=== PATIENT | female | born 2000 | race Caucasian/White ===

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

== ENCOUNTER 2018-02-11 16:17 | Emergency (ER) | payer OTHER ==
--- OUTSIDE RECORDS SUMMARY | 2018-02-11 16:36 | XMS REPORT ---
:2000 External Reference #:[id number] Author Organization [facility] Address [address] [address] Phone [phone] Care Team Providers Name Role Phone Tami Barton, SOFT SUGAR SUPERVISOR Primary Care Physician Unavailable Payers Type Date Identification Numbers Payment Provider Subscriber Commercial Policy Number: [id number] [facility] Columba Wallace PayID: [id number] [address] [place] [address] Problems Date Description Provider Status Onset: 06/29/2017 Generalized anxiety disorder Tami Barton, SOFT SUGAR SUPERVISOR Active Onset: 06/29/2017 Migraine without aura, not Digiovanna, Tami, SOFT SUGAR SUPERVISOR Active refractory Onset: 06/29/2017 von Willebrand disorder DigiovannaYaminiTami, SOFT SUGAR SUPERVISOR Active Family History Date Family Member(s) Problem(s) Comments General Cancer, Breast multiple members on mother's side, not mother or MGM General Heart Disease MGF has pacemaker General ADHD brother Mother Thyroid Disease Mother Hypertension Grandfather Cancer, Bone Grandmother Cancer, Lung Social History Type Date Description Comments Education Currently working on Vocational Degree working on [employer] Marital Status Single 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 Currently Working [employer] ETOH Use Denies alcohol use Smoking Patient has never smoked Daily Caffeine Does Not Consume Caffeine Allergies, Adverse Reactions, Alerts Date Description Reaction Status Severity Comments 06/11/2017 Lactose active 06/11/2017 NKDA inactive Medications Medication Date Status Form Strength Qnty SIG Indications Ordering Provider Imipramine HCL 00/00/0 Active Tablets 25mg 30tabs Take One F41.1 Digiovanna, 000 Tablet By Tami, Mouth At SOFT SUGAR SUPERVISOR Bedtime F33.9 Hydroxychloroquine Active Tablets 200mg 1 po bid Silvia Mahmood DR Buspirone HCL 08/03/2017 - Hx Tablets 5mg 60tabs 1 po F41 Digiovanna, 09/06/2017 daily .1 Tami, for 1 SOFT SUGAR SUPERVISOR week then twice daily Vitamin D 06/30/2017 - Hx Tablets 2000Unit OTC 1 by Digiovanna, 09/03/2017 mouth Tami, twice SOFT SUGAR SUPERVISOR every day Immunizations CPT Code Status Date Vaccine Reaction Lot # 52431 Given 10/03/2013 HPV Vaccine (Gardasil) 3 Dose Schedule nysiis 83462 Given 09/12/2012 HPV Vaccine (Gardasil) 3 Dose Schedule nysiis 95581 Given 09/11/2011 Menactra/Menveo Meningococcal Vaccine nysiis 75331 Given 09/11/2011 HPV Vaccine (Gardasil) 3 Dose Schedule nysiis 00567 Given 07/09/2010 Varicella (Chicken Pox) Immunization nysiis 77012 Given 07/09/2010 Tdap (Adacel) Ages 7 And Above Only nysiis 22119 Given 04/30/2003 IPV / Poliomyelitis Immunization nysiis 47077 Given 04/30/2003 MMR Virus Immunization nysiis 60617 Given 04/30/2003 DTaP Immunization 7 Yrs & Younger nysiis 86633 Given 09/09/2000 Hib ACTHiB Vaccine 4 Dose Schedule nysiis 22179 Given 09/09/2000 DTaP Immunization 7 Yrs & Younger nysiis 08716 Given 09/09/2000 Varicella (Chicken Pox) Immunization nysiis 76560 Given 09/09/2000 Hepatitis B Vac Ped/Adolescent 3 Dose nysiis Schedule 11908 Given 04/07/2000 Hepatitis B Vac Ped/Adolescent 3 Dose nysiis Schedule 69831 Given 02/11/2000 IPV / Poliomyelitis Immunization nysiis 67405 Given 02/11/2000 DTaP Immunization 7 Yrs & Younger nysiis 55587 Given 02/11/2000 Hib ACTHiB Vaccine 4 Dose Schedule nysiis 79147 Given 12/22/1999 IPV / Poliomyelitis Immunization nysiis 51328 Given 12/22/1999 MMR Virus Immunization nysiis 78514 Given 12/22/1999 DTaP Immunization 7 Yrs & Younger nysiis 94379 Given 12/22/1999 Hib ACTHiB Vaccine 4 Dose Schedule nysiis 46104 Given 1998 IPV / Poliomyelitis Immunization nysiis 67508 Given 1998 DTaP Immunization 7 Yrs & Younger nysiis 08155 Given 1998 Hib ACTHiB Vaccine 4 Dose Schedule nysiis 01198 Given 1998 Hepatitis B Vac Ped/Adolescent 3 Dose nysiis Schedule Vital Signs Date Vital Result Comment 01/25/2018 Body Temperature 99.2 F tympanic Weight 196.00 lb Weight Percentile 97th Heart Rate 88 /min BP Systolic 114 mmHg BP Diastolic 68 mmHg Respiratory Rate 16 /min Height 63.5 inches 5'3.50" Height Percentile 38 % BMI (Body Mass Index) 34.2 kg/m2 Body Mass Index Percentile 97 % 11/09/2017 Weight 193.00 lb Weight Percentile 97th Heart Rate 76 /min BP Systolic 118 mmHg BP Diastolic 76 mmHg Respiratory Rate 18 /min Height 63.5 inches 5'3.50" Height Percentile 38 % BMI (Body Mass Index) 33.6 kg/m2 Body Mass Index Percentile 97 % 09/20/2017 Weight 191.00 lb Weight Percentile 97th Heart Rate 96 /min BP Systolic 132 mmHg BP Diastolic 88 mmHg Respiratory Rate 14 /min Height 63.5 inches 5'3.50" Height Percentile 38 % BMI (Body Mass Index) 33.3 kg/m2 Body Mass Index Percentile 97 % 09/03/2017 Weight 193.00 lb Weight Percentile 97th Heart Rate 72 /min BP Systolic 120 mmHg BP Diastolic 78 mmHg Respiratory Rate 18 /min Height 63.5 inches 5'3.50" Height Percentile 38 % BMI (Body Mass Index) 33.6 kg/m2 Body Mass Index Percentile 97 % 08/17/2017 Weight 189.00 lb Weight Percentile 96th Heart Rate 94 /min BP Systolic 120 mmHg BP Diastolic 70 mmHg Respiratory Rate 16 /min 08/03/2017 Weight 192.00 lb Weight Percentile 97th Heart Rate 106 /min BP Systolic 118 mmHg BP Diastolic 68 mmHg Respiratory Rate 17 /min Height 64.5 inches 5'4.50" Height Percentile 54 % BMI (Body Mass Index) 32.4 kg/m2 Body Mass Index Percentile 96 % 07/09/2017 Body Temperature 98.9 F Weight 187.38 lb Weight Percentile 96th Heart Rate 86 /min BP Systolic 142 mmHg BP Diastolic 68 mmHg BP Systolic Recheck 102 mmHg BP Diastolic Recheck 76 mmHg Respiratory Rate 18 /min Height 64.5 inches 5'4.50" Height Percentile 54 % BMI (Body Mass Index) 31.7 kg/m2 Body Mass Index Percentile 96 % 06/29/2017 Body Temperature 97.9 F Weight 185.00 lb Weight Percentile 96th Heart Rate 84 /min BP Systolic 132 mmHg BP Diastolic 68 mmHg BP Systolic Recheck 108 mmHg BP Diastolic Recheck 68 mmHg Respiratory Rate 18 /min Height 64.5 inches 5'4.50" Height Percentile 54 % BMI (Body Mass Index) 31.3 kg/m2 Body Mass Index Percentile 95 % Last Menstrual Period [id number] Results Test Date Test Result H/L Range Note Ua RFX Micro & Culture II 12/10/2017 Urine Color YELLOW Yellow 1 Urine Clarity CLEAR Clear 1 Urine Glucose - Dipstick NEGATIVE mg/dL Negative 1 Urine Bilirubin - Dipstick NEGATIVE Negative 1 Urine Ketone NEGATIVE mg/dL Negative 1 Urine Specific [place] 1.010 1.010-1.030 1 Urine Blood NEGATIVE Negative 1 Urine PH 7.0 6.5-7.5 1 Urine Protein - Dipstick NEGATIVE mg/dL Negative 1 Urine Urobilinogen - Dipstick 0.2 E.U./dL 0.2-1.0 1 Urine Nitrite - Dipstick NEGATIVE Negative 1 Urine Leuk Esterase NEGATIVE Negative 1 Source: URINE, CLEAN CAT <SEE NOTE> 1, 2 Comprehensive Metabolic Panel 12/10/2017 Glucose 85 mg/dL 74-106 1 BUN 7 mg/dL 7-18 1 Creatinine 0.7 mg/dL 0.6-1.3 1 Glom Filtration Rate, Estimate >60 mL/min >60 1 If >60 mL/min >60 1, 3 BUN/Creat 10.0 ratio 1 Sodium 141 mmol/L 136-145 1 Potassium 3.7 mmol/L 3.5-5.1 1 Chloride 107 mmol/L 98-107 1 Carbon Dioxide 26 mmol/L 21-32 1 Anion Gap 8 mEq/L 8-16 1 Calcium 8.9 mg/dL 8.5-10.1 1 Total Protein 7.8 g/dL 6.4-8.2 1 Albumin 3.9 g/dL 3.4-5.0 1 Globulin 3.9 g/dL 1.9-4.3 1 Alb/Glob 1.0 ratio 1 Bilirubin,Total 0.5 mg/dL 0.2-1.0 1 Sgot/Ast 16 U/L 15-37 1 SGPT/Alt 19 U/L 12-78 1 Alkaline Phosphatase 62 U/L 45-117 1 Laboratory test finding 12/10/2017 CK 97 U/L 26-192 1 Troponin-I < 0.015 ng/mL 1, 4 Laboratory test 12/10/2017 HCG,Serum (Qualitative) NEGATIVE (Negative) 1 , 5 finding CBS W/Automated Diff 12/10/2017 White Blood Count 4.9 K/uL 3.1-10.7 1 Red Blood Count 4.47 M/uL 3.90-5.40 1 Hemoglobin 13.7 gm/dL 11.6-15.8 1 Hematocrit 39.2 % 36.0-46.1 1 Mean Cell Volume 87.7 fl 80.9-99.0 1 Mean Corpuscular HGB 30.6 pg 25.9-32.7 1 Mean Corpuscular HGB Conc 34.9 g/dL High 30.8-34.3 1 Platelet Count 247 K/uL 155-360 1 Red Cell Distri Width SD 40.1 fl 3-47 1 Red Cell Distri Width %CV 12.9 % 11.7-14.4 1 Mean Platelet Volume 8.9 fL 8.9-12.4 1 Neut% 51.7 % 28.0-68.0 1 Lymph % 38.9 % 20.0-42.0 1 [place] % 8.6 % 4.3-13.2 1 Eo% 0.2 % 0.0-6.6 1 Bas% 0.6 % 0.0-1.1 1 Neut# 2.51 K/uL 1.8-7.0 1 Lymph # 1.89 K/uL 1.0-4.0 1 [place] # 0.42 K/uL 0.3-0.9 1 Eos # 0.01 K/uL 0.0-0.5 1 Baso # 0.03 K/uL 0.0-0.1 1 Protime 12/10/2017 Protime 13.0 seconds 12.0-14.4 1 Inr 1.0 0.9-1.1 1, 6 Laboratory test finding 12/10/2017 Act Partial Thrombo 32.7 seconds 23.4- 35.0 1, 7 Time CBC + Diff, Plat Count 11/22/2017 WBC Num Bld Auto 4.5 10*3/uL 4.5-13 RBC Num Bld Auto 4.52 10*6/uL 4.1-5.3 Hgb Bld-mCnc 13.7 g/dL 11.5-15.5 Hct VFr Bld Auto 39.2 % 36-45 MCV RBC Auto 86.8 fL 80-96 MCH RBC Qn Auto 30.3 pg 27-33 MCHC RBC Auto-mCnc 34.9 g/dL 32.0-36.0 RDW RBC Auto-Rto 12.9 % 11.5-14.5 Platelet Num Bld Auto 247 10*3/uL 150-400 Differential method Bld Automated Diff Neutrophils/leuk NFr Bld Auto 44 % 28-68 Lymphocytes/leuk NFr Bld Auto 47 % 13-52 Monocytes/leuk NFr Bld Auto 8 % 0-11 Eosinophil/leuk NFr Bld Auto 0 % 0-5 Basophils/leuk NFr Bld Auto 1 % 0-2 Neutrophils Num Bld Auto 1.95 10*3/uL 1.8-7.0 Lymphocytes Num Bld Auto 2.10 10*3/uL 1.2-4.0 Monocytes Num Bld Auto 0.37 10*3/uL 0-0.8 Eosinophil Num Bld Auto 0.01 10*3/uL 0-0.5 Basophils Num Bld Auto 0.03 10*3/uL 0-0.2 nRBC/100 WBC Bld Auto-Rto 0 /100{WBCs} 0-0 Comprehensive Metabolic Galdamez 11/22/2017 Albumin SerPl BCG-mCnc 4.6 g/dL 3.5-5.2 Bilirub SerPl-mCnc 0.6 mg/dL <1.2 Calcium SerPl-mCnc 9.5 mg/dL 8.6-10.0 Chloride SerPl-sCnc 96 mmol/L Low 98-107 Creat SerPl-mCnc 0.75 mg/dL 0.4-1.0 Glucose SerPl-mCnc 76 mg/dL 70-140 Alp SerPl-cCnc 54 U/L 45-87 Potassium SerPl-sCnc 4.3 mmol/L 3.5-5.1 Prot SerPl-mCnc 7.0 g/dL 6.4-8.3 Sodium SerPl-sCnc 133 mmol/L Low 136-145 Ast SerPl-cCnc 16 U/L <32 BUN SerPl-mCnc 14 mg/dL 6-20 Osmolality SerPl Calc 275 mosm/kg 275-300 Creat/Urea nit SerPl 19 Hco3 Ser-sCnc 25 mmol/L 22-29 Alt SerPl-cCnc 14 U/L <33 Anion Gap3 SerPl-sCnc 12 mmol/L 8-15 Albumin/Glob SerPl 1.9 GFR/Bsa pred.non black SerPl MDRD-ArVRat >90 mL/min/1.73m2 >60 GFR/Bsa pred.black SerPl MDRD-ArVRat >90 mL/min/1.73m2 >60 Laboratory test finding 11/22/2017 CRP Highly Sensitive 0.4 mg/L <3.0 8 Rheumatoid Factor Qnt <10 IU/mL <14 9 Sed Rate - Esr 5 mm/hr <20 Latanya 11/22/2017 Latanya Homogen Titr Ser 250 1/dil High 0-49 Latanya Speckled Titr Ser 1250 1/dil High 0-49 Latanya Rim Titr Ser <50 1/dil 0-49 Latanya nucleolar Titr Ser <50 1/dil 0-49 Laboratory test finding 11/08/2017 Magnesium 2.1 mg/dL 1.8-2.4 10 TSH Reflex FT4 and/or FT3 3.05 uIU/mL 0.30-4.20 10 HCG,Serum (Qualitative) NEGATIVE (Negative) 10, 11 Comprehensive Metabolic Panel 11/08/2017 Glucose 72 mg/dL Low 74-106 10 BUN 9 mg/dL 7-18 10 Creatinine 0.6 mg/dL 0.6-1.3 10 Glom Filtration Rate, Estimate >60 mL/min >60 10 If >60 mL/min >60 10, 12 BUN/Creat 15.0 ratio 10 Sodium 141 mmol/L 136-145 10 Potassium 4.1 mmol/L 3.5-5.1 10 Chloride 108 mmol/L High 98-107 10 Carbon Dioxide 30 mmol/L 21-32 10 Anion Gap 3 mEq/L Low 8-16 10 Calcium 9.0 mg/dL 8.5-10.1 10 Total Protein 7.3 g/dL 6.4-8.2 10 Albumin 3.8 g/dL 3.4-5.0 10 Globulin 3.5 g/dL 1.9-4.3 10 Alb/Glob 1.1 ratio 10 Bilirubin,Total 0.4 mg/dL 0.2-1.0 10 Sgot/Ast 15 U/L 15-37 10 SGPT/Alt 21 U/L 12-78 10 Alkaline Phosphatase 57 U/L 45-117 10 Drugs Of Abuse-Urine Screen 7 11/08/2017 Amphetamines (Urine) Negative 10 Barbiturates (Urine) Negative 10 Benzodiazepines (Urine) Negative 10 Cannabinoids (Urine) Negative 10 Cocaine Metabolite (Urine) Negative 10 Methadone (Urine) Negative 10 Opiates (Urine) Negative 10 Urine Cutoffs * 10, 13 Ua RFX Micro & Culture II 11/08/2017 Urine Color YELLOW Yellow 10 Urine Clarity CLEAR Clear 10 Urine Glucose - Dipstick NEGATIVE mg/dL Negative 10 Urine Bilirubin - Dipstick NEGATIVE Negative 10 Urine Ketone NEGATIVE mg/dL Negative 10 Urine Specific [place] <=1.005 Low 1.010-1.030 10 Urine Blood NEGATIVE Negative 10 Urine PH 5.5 Low 6.5-7.5 10 Urine Protein - Dipstick NEGATIVE mg/dL Negative 10 Urine Urobilinogen - Dipstick 0.2 E.U./dL 0.2-1.0 10 Urine Nitrite - Dipstick NEGATIVE Negative 10 Urine Leuk Esterase NEGATIVE Negative 10 Source: URINE, CLEAN CAT <SEE 10, 14 NOTE> CBS W/Automated Diff 11/08/2017 White Blood Count 3.7 K/uL 3.1-10.7 10 Red Blood Count 4.48 M/uL 3.90-5.40 10 Hemoglobin 13.4 gm/dL 11.6-15.8 10 Hematocrit 39.7 % 36.0-46.1 10 Mean Cell Volume 88.6 fl 80.9-99.0 10 Mean Corpuscular HGB 29.9 pg 25.9-32.7 10 Mean Corpuscular HGB Conc 33.8 g/dL 30.8-34.3 10 Platelet Count 245 K/uL 155-360 10 Red Cell Distri Width SD 40.9 fl 3-47 10 Red Cell Distri Width %CV 12.9 % 11.7-14.4 10 Mean Platelet Volume 9.0 fL 8.9-12.4 10 Neut% 43.3 % 28.0-68.0 10 Lymph % 48.1 % High 20.0-42.0 10 [place] % 7.8 % 4.3-13.2 10 Eo% 0.3 % 0.0-6.6 10 Bas% 0.5 % 0.0-1.1 10 Neut# 1.61 K/uL Low 1.8-7.0 10 Lymph # 1.79 K/uL 1.0-4.0 10 [place] # 0.29 K/uL Low 0.3-0.9 10 Eos # 0.01 K/uL 0.0-0.5 10 Baso # 0.02 K/uL 0.0-0.1 10 Vitamin B12 And Folate 11/08/2017 Vitamin B12 1322 pg/mL High 193-986 10 Folic Acid 15.5 ng/mL 3.1-17.5 10 Urine HCG (Qualitative) 09/02/2017 Urine HCG (Qualitative) NEGATIVE Negative 15, 16 Source: URINE, CLEAN CAT <SEE NOTE> 15, 17 Ua RFX Micro & Culture II 09/02/2017 Urine Color YELLOW Yellow 15 Urine Clarity CLEAR Clear 15 Urine Glucose - Dipstick NEGATIVE mg/dL Negative 15 Urine Bilirubin - Dipstick NEGATIVE Negative 15 Urine Ketone NEGATIVE mg/dL Negative 15 Urine Specific [place] <=1.005 Low 1.010-1.030 15 Urine Blood NEGATIVE Negative 15 Urine PH 6.0 Low 6.5-7.5 15 Urine Protein - Dipstick NEGATIVE mg/dL Negative 15 Urine Urobilinogen - Dipstick 0.2 E.U./dL 0.2-1.0 15 Urine Nitrite - Dipstick NEGATIVE Negative 15 Urine Leuk Esterase NEGATIVE Negative 15 Source: URINE, CLEAN CAT <SEE 15, 18 NOTE> Laboratory test finding 06/29/2017 Vit D25oh 23 ng/mL Low 31-100 TSH 1.90 uIU/mL 0.35-4.94 Lipid 06/29/2017 Cholesterol 195 mg/dL 50-199 Triglycerides 48 mg/dL 30-200 HDL 66 mg/dL 35-85 19 Chol/ HDL Ratio 3.0 ratio Low 3.7-5.6 VLDL 10 mg/dL 2-29 LDL (Calc) 120 mg/dL High 20-99 20 Comprehensive Met Panel-FCMG 06/29/2017 Sodium 140 mmol/L 135-146 21 Potassium 4.2 mmol/L 3.5-5.2 Chloride# 103 mmol/L 97-110 22 Carbon Dioxide 30 mmol/L 24-34 Glucose 77 mg/dL 70-105 BUN 9 mg/dL 6-26 Creatinine 0.7 mg/dL 0.5-1.4 Calcium 9.7 mg/dL 8.5-10.2 Total Protein 7.1 g/dL 6.0-8.0 Albumin 4.5 g/dL 3.6-4.9 Globulin 2.6 g/dL 2.0-3.5 A/G Ratio 1.7 Ratio 1.0-2.2 Total Bilirubin 0.6 mg/dL 0.1-1.3 Alkaline Phosphatase 59 U/L 24-140 Alt 12 U/L 3-42 Ast 16 U/L 8-42 Monika Egfr >60 >60 23 Non Monika Egfr >60 >60 24 Anion Gap 7 mmol/L 7-16 25 CBC With Auto Diff 06/29/2017 WBC 5.6 K/uL 4.1-11.0 RBC 4.34 M/uL 4.00-5.40 Hemoglobin 12.9 gm/dL 12.0-16.0 Hematocrit 38.1 % 36.0-47.0 MCV 87.8 fL 80.0-97.0 MCH 29.8 pg 27.0-32.0 MCHC 33.9 g/dL 32.0-36.0 RDW 13.3 % 11.5-14.5 PLT Count 322 K/ul 140-400 Neutrophil 44.2 % 35.0-75.0 Lymphocyte 48.3 % 16.0-52.0 Monocyte 6.7 % 2.0-10.0 Eosinophil 0.0 % 0.0-5.0 Basophil 0.8 % 0.0-4.0 Abs Neutrophils 2.5 K/uL 2.1-8.0 Abs Lymphocytes 2.7 K/uL 0.8-5.5 Abs Monocytes 0.4 K/uL 0.1-1.0 Abs Eosinophils 0.0 K/uL 0.0-0.5 Abs Basophils 0.0 K/uL 0.0-0.3 1 NAUSEA, WEAK, SHAKEY. GETTING CHECKED FOR MS 2 URINE, CLEAN CATCH 3 Note: Persistent reduction for 3 months or more in an eGFR <60 mL/min/1.73 m2 defines CKD. Patients with eGFR values >/=60 mL/min/1.73 m2 may also have CKD if evidence of persistent proteinuria is present. The original MDRD equation for estimated GFR is not valid for patients less than 18 years of age. Additional information may be found at www.kdoqi.org. 4 0.0 - 0.045 ng/mL: Normal 0.046 - 0.5 ng/mL: Suggestive 0.6 - 1.5 ng/mL: Consistent 5 Method: Quidel QuickVue One-Step Immunoassay 6 THERAPEUTIC INR RANGE: 2.0 - 3.0 DVT, Pulmonary embolus, prophylaxis against venous thrombosis or systemic embolization in high risk patients. 2.5 - 3.5 Mechanical heart valves 7 Is patient on anticoagulants? Coumadin 8 (NOTE) CRPHS (mg/L) CVD risk <1.0 low 1.0-3.0 average >3.0 high 9 Confirmed 10 MUSCLE SPASMS, FINGERS TINGLING AND PAINFUL 11 Method: Quidel QuickVue One-Step Immunoassay 12 Note: Persistent reduction for 3 months or more in an eGFR <60 mL/min/1.73 m2 defines CKD. Patients with eGFR values >/=60 mL/min/1.73 m2 may also have CKD if evidence of persistent proteinuria is present. The original MDRD equation for estimated GFR is not valid for patients less than 18 years of age. Additional information may be found at www.kdoqi.org. 13 URINE SPECIMENS ARE SCREENED AT THE LISTED CUTOFFS DRUG CLASS INITIAL TEST LEVEL Amphetamines 1000 ng/mL Barbiturates 200 ng/mL Benzodiazepines 200 ng/mL Cannabinoids 50 ng/mL Cocaine Metabolite 300 ng/mL Methadone 300 ng/mL Opiates 300 ng/mL Any PRESUMPTIVE POSITIVE findings are UNCONFIRMED. Confirmatory testing is suggested if findings are unexpected. Please contact laboratory if confirmatory testing is desired. SPECIMENS ARE HELD FOR 72 HOURS. 14 URINE, CLEAN CATCH 15 LOW BLOOD PRESSURE, LIGHT HEADED 16 FIRST MORNING SPECIMENS GENERALLY CONTAIN THE HIGHEST CONCENTRATION OF HCG AND ARE RECOMMENDED FOR EARLY DETECTION OF . Method: Quidel QuickVue One-Step Immunoassay 17 URINE, CLEAN CATCH 18 URINE, CLEAN CATCH 19 Per NCEP ATP III Guidelines: Results lower than 40 mg/dL are suggestive of increased risk for coronary artery disease. Results > or=to 60 mg/dL are considered a negative risk factor. 20 Per NCEP ATP III Guidelines: Normal Population <130 Patients with medical conditions: CHD/DM Optimal: <100 Borderline high: 130-159 High: 160-189 Very high: >189 21 Updated reference range on new analyzer 22 Updated reference range on new analyzer 23 Concerning GFR Guidelines for Americans: Normal function or mild renal disease, if clinically at risk: >/=60 mL/min Moderately decreased: 30-59 Severely decreased: 15-29 Renal failure: <15 24 Concerning GFR Guidelines: Normal function or mild renal disease, if clinically at risk: >/=60 mL/min Moderately decreased: 30-59 Severely decreased: 15-29 Renal failure: <15 Glomerular Filtration Rate (GFR) is estimated based on the MDRD equation, which assumes a steady state for creatinine as recommended by the National Kidney Disease Education Program in conjunction with the National Institutes of Health and the National Kidney Foundation. Clinical conditions in which it may be necessary to measure GFR by using clearance methods include extremes of age and body size, severe malnutrition or obesity, diseases of skeletal muscle, paraplegia or quadriplegia, vegetarian diet, rapidly changing kidney function, and calculation of the dose of potentially toxic drugs that are excreted by the kidneys. 25 Updated reference range on new analyzer Procedures Date CPT Code Description Status 08/03/2017 64254 X-Ray Spine Cervical, 6 Or More Views Completed 06/29/2017 12146 Screening Hearing Test Completed Encounters Type Date Location Provider CPT E/M Dx Office Visit 11/09/2017 8:30a [facility] [place] [address] M62.838 R20.9 H53.8 F33.9 F41.1 R51 Office Visit 09/20/2017 4:00p [facility] [place] [address] F41.1 F33.9 R51 Office Visit 09/03/2017 4:15p [facility] [place] [address] R21 Office Visit 08/17/2017 2:30p [facility] [place] [address] F41.1 F33.9 Office Visit 08/03/2017 2:45p [facility] [place] [address] R51 M54.2 F41.1 F33.9 Office Visit 07/09/2017 2:30p [facility] [place] [address] J06.9 Office Visit 06/29/2017 2:00p [facility] [place] [address] Z00.00 D68.0 G43.009 F41.1 E55.9 R31.9 Z83.49 E78.00 Z68.31 Plan of Care Future Appointment(s):04/12/2018 11:30 am - Tami Barton NP at [facility]07/01 3:00 pm - Tami Barton NP at [facility]01/25/2018 - Tami Barton NPM62.838 Other muscle spasmComments:Continue to follow with rheumatology and gxrakqiaxR50.1 MyalgiaComments:Continue PlaquenilIbuprofen 600mg every 6 hours with food alternating Tylenol 1000mg every 6 hours.F41.1 Generalized anxiety disorderComments:Will continue Imipramine for now and re- evaluate after M-S symptoms are under controlFollow up:3 months for srkxarnW19.5 Low back painComments:Urine dip normal and reassuringTylenol and ibuprofen as above.
--- OUTSIDE RECORDS SUMMARY | 2018-02-11 16:36 | XMS REPORT ---
:2000 External Reference #:[id number] Author Organization [facility] Address [address], [address] [place] [address] Phone [phone] Care Team Providers Name Role Phone José Luis Barton MD Care Team Information Non Destructive Tester Unavailable José Luis Barton MD Primary Care Physician Unavailable Payers Type Date Identification Numbers Payment Provider Subscriber Commercial Policy Number: [id number] [facility] Columba Wallace PayID: [id number] [address] [place] [address] Problems Date Description Provider Status Onset: 01/21/2018 Abducens nerve disorder Aditya Culver MD Active Onset: 01/21/2018 Visual discomfort Aditya Culver MD Active Family History Date Family Member(s) Problem(s) Comments Mother Alive Mother Heart Failure Mother Wears Glasses Social History Type Date Description Comments Marital Status Single ETOH Use Denies alcohol use Smoking Patient has never smoked Allergies, Adverse Reactions, Alerts Date Description Reaction Status Severity Comments 12/06/2017 NKDA active Medications Medication Date Status Form Strength Qnty SIG Indications Ordering Provider Imipramine HCL / Active Tablets 25mg 1 PO qd Unknown 0000 Hydroxychloroquine / Active Tablets 200mg Take One Unknown Sulfate 0000 Tablet By Mouth Twice A Day Meclizine HCL / Hx Tablets 25mg Take One Unknown 0000 - Tablet 12/06/ By Mouth 2017 Four Times A Day as Needed For Vertigo Vitamin D / Hx Capsules 19051Tuss Take 1 Unknown (Ergocalciferol) 0000 - Capsule 12/06/ By Mouth 2017 Every Week Buspirone HCL / Hx Tablets 5mg Digiovann 0000 - a, 02/12/ Tami 2017 J, MARKETING COMM[employer]ICATION[employer] COORDINATOR Results Description No Information Procedures Date CPT Code Description Status 01/21/2018 24208 Scanning Computerized Ophthalmic Diagnostic Imaging, Completed Posterior 01/21/2018 63774 Visual Field Exam Extended, Unilateral Or Bilateral Completed 01/21/2018 17039 Eye Exam Est Patient Comprehensive Completed 12/06/2017 98858 Eye Exam New Patient Comprehensive Completed Plan of Care Future Appointment(s):02/01/2018 10:45 am - Aditya Culver MD at [id number]/ 08/2018 9:45 am - Aditya Culver MD at [facility]/30/2018 - Aditya Culver MDH53.141 Visual discomfort, right eyeComments:- no sign of retinopathy- no sign of optic neuropathy- no sign of maculopathy- in setting of hydroxychloroquine use, will perform vf 10-2, oct macula in 4-6 weeks for baseline testingFollow up:4-6 weeks dilate ou; vf 10-2, oct macula please sign of ph[place] for [place] [place]; labs and clinic notes fhmwauX49.22 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
--- OUTSIDE RECORDS SUMMARY | 2018-02-11 16:36 | XMS REPORT ---
:2000 External Reference #:[id number] Author Organization [employer] Address [address] [address] Phone [phone] Care Team Providers Name Role Phone Tami Barton FNP Primary Care Physician Unavailable Payers Type Date Identification Numbers Payment Provider Subscriber Commercial Policy Number: [id number] Santosh Wallace Group Number: [id number] [address] PayID: [id number] [place] [address] Problems Date Description Provider Status Onset: 11/30/2017 Visual disturbance Getachew Webster MD Active Onset: 11/30/2017 Neuralgia Getachew Webster MD Active Onset: 11/30/2017 Skin sensation disturbance Getachew Webster MD Active Social History Type Date Description Comments ETOH Use Never used alcohol Smoking Patient has never smoked Allergies, Adverse Reactions, Alerts Date Description Reaction Status Severity Comments 11/30/2017 NKDA active Medications Medication Date Status Form Strength Qnty SIG Indications Ordering Provider Imipramine HCL / Active Tablets 25mg 1 @hs [employer]anna 0000 , Tami, [employer] Hydroxychloroquine / Active Tablets 200mg Take One Unknown Sulfate 0000 Tablet By Mouth Twice A Day Vital Signs Date Vital Result Comment 02/04/2018 Height 64 inches 5'4" Weight 193.50 lb Heart Rate 68 /min BP Systolic 104 mmHg BP Diastolic 86 mmHg BMI (Body Mass Index) 33.2 kg/m2 Height Percentile 45 % Weight Percentile 97th 11/30/2017 Height 64 inches 5'4" Weight 191.38 lb Heart Rate 78 /min BP Systolic Sitting 120 mmHg BP Diastolic Sitting 80 mmHg BMI (Body Mass Index) 32.8 kg/m2 Height Percentile 46 % Weight Percentile 97th Results Test Date Test Result H/L Range Note Laboratory test finding 11/30/2017 Vitamin D Total 25(Oh) 21.3 ng/mL 20- 50 Vitamin B12 693 pg/mL 180-914 1 TSH (Thyroid Stim Horm) 1.91 mcIU/mL 0.34-5.60 Nmo Igg Negative Negative 2 Lyme Disease Serology Negative Negative 3 Folic Acid (Folate) 16.24 ng/mL >3.99 Erythrocyte Sed Rate 11 mm/Hr 0-14 Anti Nuclear Antibody 0.9 U 4 Cardiolipin Igg/Igm 11/30/2017 Phospholipid Ab IgM, S < 9.4 MPL 5 Phospholipid Ab IgG < 9.4 GPL 6 Comp Metabolic Panel 11/30/2017 Sodium 137 mmol/L 133-145 Potassium 4.0 mmol/L 3.5-5.0 Chloride 103 mmol/L 101-111 Co2 Carbon Dioxide 29 mmol/L 22-32 Anion Gap 5 mmol/L 2-11 Glucose 76 mg/dL 70-100 Blood Urea Nitrogen 8 mg/dL 6-24 Creatinine 0.73 mg/dL 0.51-0.95 BUN/Creatinine Ratio 11.0 8-20 Calcium 9.4 mg/dL 8.6-10.3 Total Protein 7.0 g/dL 6.4-8.9 Albumin 4.3 g/dL 3.2-5.2 Globulin 2.7 g/dL 2-4 Albumin/Globulin Ratio 1.6 1-3 Total Bilirubin 0.70 mg/dL 0.2-1.0 Alkaline Phosphatase 45 U/L 34-104 Alt 12 U/L 7-52 Ast 13 U/L 13-39 Egfr Non- 102.7 >60 Egfr 132.1 >60 7 1 Normal Range 180 to 914 Indeterminate Range 145 to 180 Deficient Range <145 2 Recommend repeat testing in 6 months if clinical suspicion is high. Negative result can occur in the setting of immunosuppression. ADDITIONAL INFORMATION This test was developed and its performance characteristics determined by [facility] in a manner consistent with CLIA requirements. This test has not been cleared or approved by the U.S. Food and Drug Administration. Test Performed by: [facility] - [address] [address] 3 Serologic response to B. burgdorferi infection is not detected, but cannot rule out early infection during which low or undetectable antibody levels to B. burgdorferi may be present. If clinically indicated, a new serum specimen should be submitted in 7-14 days. Test Performed by: [facility] - [facility] [address] [place] [address] 4 REFERENCE VALUE <=1.0 (Negative) Test Performed by: [facility] - [facility] [address] [place] [address] 5 REFERENCE VALUE <15.0 (Negative) 6 REFERENCE VALUE <15.0 (Negative) Test Performed by: [facility] - [address] [address] 7 Because ethnic data is not always readily available, this report includes an eGFR for both -Americans and non- Americans. The National Kidney Disease Education Program (NKDEP) does not endorse the use of the MDRD equation for patients that are not between the ages of 18 and 70, are , have extremes of body size, muscle mass, or nutritional status, or are non- or non-. According to the National Kidney Foundation, irrespective of diagnosis, the stage of the disease is based on the level of kidney function: Stage Description GFR(mL/min/1.73 m(2)) 1 Kidney damage with normal or decreased GFR 90 2 Kidney damage with mild decrease in GFR 60-89 3 Moderate decrease in GFR 30-59 4 Severe decrease in GFR 15-29 5 Kidney failure <15 (or dialysis) Procedures Description No Information Encounters Type Date Location Provider CPT E/M Dx Office Visit 11/30/2017 [facility] [address] R20.0 10:15a R20.2 M79.2 H53.8 Plan of Care Future Appointment(s):08/09/2018 9:30 am - Getachew Webster MD at [id number]/04/2018 - Getachew Webster, MDR20.0 Anesthesia of skinR20.2 Paresthesia of skinH53.8 Other visual disturbancesComments:Her joint symtoms and rash do go along with connective tissue disease and she is being treated adn no specific abnormalities found on neurologic testing - will have her complete the maxine now. Will follow clinically and she will call if gets numbness, weakness or further change in vision.Will take vit d 2000 units a day since level on low sideFollow up:6 MONTHS
[2018-02-11 16:39] VITALS: BP 137/78
--- NOTE | 2018-02-11 17:22 | UC ---
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 central scratch part is itchy. no fevers or chills. -NKDA -LMP 3 days ago. denies being sexually active and denies being . - History of Current Complaint Chief Complaint: UCSkin Time Seen by Provider: 02/11/18 17:08 Stated Complaint: SKIN COMPLAINT Hx Last Menstrual Period: 02/08/18 Pain Intensity: 3 - Allergy/Home Medications Allergies/Adverse Reactions: Allergies Allergy/AdvReac Type Severity Reaction Status Date / Time No Known Allergies Allergy Verified 02/11/18 16:40 Home Medications: Home Medications Hydroxychloroquine TAB* [Plaquenil TAB*] 200 mg PO DAILY 02/11/18 [History Confirmed 02/11/18] Review of Systems Constitutional: Negative Skin: Rash - it felt warm yesterday and today and wanted to makes ure it wasnt more infected. Eyes: Negative ENT: Negative Respiratory: Negative Cardiovascular: Negative Gastrointestinal: Negative Genitourinary: Negative Motor: Negative Neurovascular: Negative Musculoskeletal: Negative Neurological: Negative Psychological: Negative Is Patient Immunocompromised?: No All Other Systems Reviewed And Are Negative: Yes PMH/Surg Hx/FS Hx/Imm Hx Previously Healthy: Yes - Surgical History Surgical History: None Surgery Procedure, Year, and Place: DENIES - Family History Known Family History: Positive: Cardiac Disease - father with CHF as older adult Negative: Hypertension, Diabetes - Social History Alcohol Use: None Substance Use Type: None Smoking Status (MU): Never Smoked Tobacco Have You Smoked in the Last Year: No Physical Exam Triage Information Reviewed: Yes Appearance: Well-Appearing, No Pain Distress, Well-Nourished Vital Signs: Initial Vital Signs Temp 98.5 F 02/11/18 16:34 Pulse 107 02/11/18 16:34 Resp 17 02/11/18 16:34 BP 137/78 02/11/18 16:34 Pulse Ox 98 02/11/18 16:34 Vital Signs Reviewed: Yes Eye Exam: Normal ENT Exam: Normal ENT: Positive: Pharynx normal Neck exam: Normal Respiratory Exam: Normal Respiratory: Positive: Lungs clear, Normal breath sounds, No respiratory distress, No accessory muscle use Cardiovascular Exam: Normal Cardiovascular: Positive: RRR, No Murmur, Pulses Normal, Brisk Capillary Refill - apical HR 90 Musculoskeletal Exam: Normal Neurological Exam: Normal Psychological Exam: Normal Skin: Positive: Other - left forearm with 2 scratches oblong down forearm w/ yellow crusted scab down. there is 1-2 inches of blanching erythema surrounding. no d/c. warm to touch. Course/Dx - Course Course Of Treatment: -explained impetigo and nature of it. js it with selvin websterck progression of surrounding cellulitis. f/u here if sx worsen but should improve daily. -bactrim to cover MRSA & bactroban topically. - Diagnoses Provider Diagnoses: Impetigo Discharge - Sign-Out/Discharge Documenting (check all that apply): Discharge - Discharge Plan Condition: Stable Disposition: HOME Prescriptions: Mupirocin 2% OINT* [Bactroban 2 % Oint*] 1 applic TOPICAL BID 10 Days #1 tube Sulfamethox/Trimethoprim DS* [Bactrim DS 800/160 TAB*] 1 tab PO BID 10 Days #20 tab Patient Education Materials: Impetigo (ED) Referrals: Tami Barotn [Primary Care Provider] - 5 Days Additional Instructions: -Make sure to take a probiotic daily while on antibiotics to help prevent a potential complication of antibiotic use called c diff. Some well known brands that can be found OTC are florastor, align and [employer]. Make sure to complete the entire prescription unless advised otherwise by your health care provider. - Billing Disposition and Condition Condition: STABLE Disposition: HOME
== END 2018-02-11 17:39 | disposition home or self-care (01) ==
LOC: UCCORT 16:17
DX: L01.00 Impetigo, unspecified (principal)
CPT/HCPCS: 99212; G0463

== ENCOUNTER 2018-04-23 15:18 | Emergency (ER) | payer OTHER ==
[2018-04-23] MEDS ORDERED: NS 0.9% 1000 ML* 2,000 ML IV ONE (15:34)
[2018-04-23] MEDS ORDERED: Ondansetron ODT TAB* 4 MG PO ONE (15:34)
[2018-04-23 16:21] LABS: ABS Basophils 0 10^3/ul (0-0.2); ABS Eosinophils 0.1 10^3/ul (0-0.6); ABS Lymphocytes 2.3 10^3/ul (1.0-4.8); ABS Monocytes 0.5 10^3/ul (0-0.8); ABS Neutrophils 1.7 10^3/ul (1.5-7.7); ABS Nucleated RBC 0 10^3/ul; Eosinophil % 1.5 % (0-6); Hematocrit 36 % (35-47); Mean Corpuscular HGB Conc 34 g/dl (31-36); Mean Corpuscular Hemoglobin 30 pg (27-31); Mean Corpuscular Volume 90 fL (80-97); Mean Platelet Volume 6.9 um3 (7.4-10.4); Nucleated Red Blood Cells % 0; Platelet Count 243 10^3/ul (150-450); Red Blood Count 3.96 10^6/ul (4.00-5.40); Red Cell Distribution Width 14 % (10.5-15); White Blood Count 4.5 10^3/ul (3.5-10.8)
[2018-04-23 16:30] LABS: INR 0.9 (0.77-1.02)
[2018-04-23 16:40] LABS: EGFR Non-African American 113.4 (>60)
[2018-04-23 17:10] LABS: Urine Appearance Clear; Urine Blood Negative (Negative); Urine Color Yellow; Urine Ketones Negative (Negative); Urine Protein Negative (Negative); Urine Specific Gravity 1.008 (1.010-1.030); Urine Urobilinogen Negative (Negative)
--- NOTE | 2018-04-23 19:02 | ED ---
Josue Abdi Tariq, scribed for Cabrera Forbes MD on 04/23/18 at 1542 . Complex/Multi-Sys Presentation - HPI Summary HPI Summary: A 17 y/o female presents to ED c/o N/V for the past day. Additionally c/o lightheadedness, ear pain and throat dryness. According to the pt, she exhibited N/V since yesterday morning which gets worse with movement of her head. She noted that she tried drinking a lot of water today to stay hydrated, however she has not been able to keep anything down. She has been vomiting for the past couple hours. Pt noted that she feels hot, shaky and has had "heart palpations". Pt denies abdominal pain, urinary issues, diarrhea/constipation and back pain, however she has a headache, lightheadedness and feels dehydrated. No current medications and no known allergies. Last menstrual period was last week. No major surgeries. - History Of Current Complaint Chief Complaint: EDNauseaVomitDiarrh Time Seen by Provider: 04/23/18 15:26 Hx Obtained From: Patient Onset/Duration: Sudden Onset, Lasting Days - 1 day, Still Present - Slight Aggravating Factor(s): Movement of head Associated Signs And Symptoms: Positive: Headache, Palpitations, Nausea, Vomiting. Negative: Diarrhea, Back Pain - Allergies/Home Medications Allergies/Adverse Reactions: Allergies Allergy/AdvReac Type Severity Reaction Status Date / Time No Known Allergies Allergy Verified 04/23/18 15:39 PMH/Surg Hx/FS Hx/Imm Hx Endocrine/Hematology History: Denies: Hx Diabetes Cardiovascular History: Denies: Hx Hypertension, Hx Pacemaker/ICD History: Denies: Hx Renal Disease Sensory History: Denies: Hx Hearing Aid Psychiatric History: Reports: Hx Panic Disorder - ANXIETY - Surgical History Surgery Procedure, Year, and Place: DENIES Infectious Disease History: No Infectious Disease History: Denies: Traveled Outside the [place] in Last 30 Days - Family History Known Family History: Positive: Cardiac Disease - father with CHF as older adult Negative: Hypertension, Diabetes - Social History Alcohol Use: None Substance Use Type: Reports: None Smoking Status (MU): Never Smoked Tobacco Have You Smoked in the Last Year: No Review of Systems Negative: Fever Positive: Sore Throat - Dryness, Ear Ache Positive: Palpitations Positive: Vomiting, Nausea. Negative: Abdominal Pain, Diarrhea Negative: no symptoms reported Positive: Other - NEGATIVE: back pain Neurological: Other - POSITIVE: lightheaded All Other Systems Reviewed And Are Negative: Yes Physical Exam - Summary Physical Exam Summary: General:well-appearing, no pain distress Skin:warm, color reflects adequate perfusion, dry Head:normal Eyes:EOMI, CHEO ENT:Oral mucosa dry Neck:supple, nontender Respiratory:CTA, breath sounds present Cardiovascular:RRR Abdomen:soft, nontender Bowel:present Musculoskeletal:normal, strength/ROM intact Neurological:sensory/motor intact, A&O x3 Psychological:affect/mood appropriate Triage Information Reviewed: Yes Vital Signs On Initial Exam: Initial Vitals Temp Pulse Resp BP Pulse Ox 98.3 F 88 16 123/66 99 04/23/18 15:21 04/23/18 15:21 04/23/18 15:21 04/23/18 15:21 04/23/18 15:21 Vital Signs Reviewed: Yes Diagnostics - Vital Signs Vital Signs Temp Pulse Resp BP Pulse Ox 04/23/18 15:37 77 17 123/76 100 04/23/18 15:36 12 04/23/18 15:21 98.3 F 88 16 123/66 99 - Laboratory Lab Results: Lab Results 04/23/18 04/23/18 04/23/18 Range/Units 16:09 16:09 16:09 WBC 4.5 (3.5-10.8) 10^3/ul RBC 3.96 L (4.00-5.40) 10^6/ul Hgb 12.0 (12.0-16.0) g/dl Hct 36 (35-47) % MCV 90 (80-97) fL MCH 30 (27-31) pg MCHC 34 (31-36) g/dl RDW 14 (10.5-15) % Plt Count 243 (150-450) 10^3/ul MPV 6.9 L (7.4-10.4) um3 Neut % (Auto) 37.4 L (38-83) % Lymph % (Auto) 50.0 H (25-47) % [place] % (Auto) 10.4 H (0-7) % Eos % (Auto) 1.5 (0-6) % Baso % (Auto) 0.7 (0-2) % Absolute Neuts (auto) 1.7 (1.5-7.7) 10^3/ul Absolute Lymphs (auto) 2.3 (1.0-4.8) 10^3/ul Absolute Monos (auto) 0.5 (0-0.8) 10^3/ul Absolute Eos (auto) 0.1 (0-0.6) 10^3/ul Absolute Basos (auto) 0 (0-0.2) 10^3/ul Absolute Nucleated RBC 0 10^3/ul Nucleated RBC % 0 INR (Anticoag Therapy) 0.90 (0.77-1.02) APTT 34.6 (26.0-36.3) seconds Sodium 138 (135-145) mmol/L Potassium 3.9 (3.5-5.0) mmol/L Chloride 103 (101-111) mmol/L Carbon Dioxide 31 (22-32) mmol/L Anion Gap 4 (2-11) mmol/L BUN 9 (6-24) mg/dL Creatinine 0.67 (0.51-0.95) mg/dL Est GFR ( Amer) 137.2 (>60) Est GFR (Non-Af Amer) 113.4 (>60) BUN/Creatinine Ratio 13.4 (8-20) Glucose 87 (70-100) mg/dL Calcium 9.0 (8.6-10.3) mg/dL Magnesium 1.8 L (1.9-2.7) mg/dL Total Bilirubin 0.40 (0.2-1.0) mg/dL AST 15 (13-39) U/L ALT 15 (7-52) U/L Alkaline Phosphatase 40 (34-104) U/L Troponin I 0.00 (<0.04) ng/mL C-Reactive Protein < 1.00 (<8.01) mg/L Total Protein 6.5 (6.4-8.9) g/dL Albumin 4.0 (3.2-5.2) g/dL Globulin 2.5 (2-4) g/dL Albumin/Globulin Ratio 1.6 (1-3) Lipase 12 (11.0-82.0) U/L TSH 3.91 (0.34-5.60) mcIU/mL Beta HCG, Quant < 0.60 mIU/mL Urine Color Urine Appearance Urine pH (5-9) Ur Specific [place] (1.010-1.030) Urine Protein (Negative) Urine Ketones (Negative) Urine Blood (Negative) Urine Nitrate (Negative) Urine Bilirubin (Negative) Urine Urobilinogen (Negative) Ur Leukocyte Esterase (Negative) Urine Glucose (Negative) Monoscreen Negative (Negative) 04/23/18 Range/Units 17:00 WBC (3.5-10.8) 10^3/ul RBC (4.00-5.40) 10^6/ul Hgb (12.0-16.0) g/dl Hct (35-47) % MCV (80-97) fL MCH (27-31) pg MCHC (31-36) g/dl RDW (10.5-15) % Plt Count (150-450) 10^3/ul MPV (7.4-10.4) um3 Neut % (Auto) (38-83) % Lymph % (Auto) (25-47) % [place] % (Auto) (0-7) % Eos % (Auto) (0-6) % Baso % (Auto) (0-2) % Absolute Neuts (auto) (1.5-7.7) 10^3/ul Absolute Lymphs (auto) (1.0-4.8) 10^3/ul Absolute Monos (auto) (0-0.8) 10^3/ul Absolute Eos (auto) (0-0.6) 10^3/ul Absolute Basos (auto) (0-0.2) 10^3/ul Absolute Nucleated RBC 10^3/ul Nucleated RBC % INR (Anticoag Therapy) (0.77-1.02) APTT (26.0-36.3) seconds Sodium (135-145) mmol/L Potassium (3.5-5.0) mmol/L Chloride (101-111) mmol/L Carbon Dioxide (22-32) mmol/L Anion Gap (2-11) mmol/L BUN (6-24) mg/dL Creatinine (0.51-0.95) mg/dL Est GFR ( Amer) (>60) Est GFR (Non-Af Amer) (>60) BUN/Creatinine Ratio (8-20) Glucose (70-100) mg/dL Calcium (8.6-10.3) mg/dL Magnesium (1.9-2.7) mg/dL Total Bilirubin (0.2-1.0) mg/dL AST (13-39) U/L ALT (7-52) U/L Alkaline Phosphatase (34-104) U/L Troponin I (<0.04) ng/mL C-Reactive Protein (<8.01) mg/L Total Protein (6.4-8.9) g/dL Albumin (3.2-5.2) g/dL Globulin (2-4) g/dL Albumin/Globulin Ratio (1-3) Lipase (11.0-82.0) U/L TSH (0.34-5.60) mcIU/mL Beta HCG, Quant mIU/mL Urine Color Yellow Urine Appearance Clear Urine pH 6.0 (5-9) Ur Specific [place] 1.008 L (1.010-1.030) Urine Protein Negative (Negative) Urine Ketones Negative (Negative) Urine Blood Negative (Negative) Urine Nitrate Negative (Negative) Urine Bilirubin Negative (Negative) Urine Urobilinogen Negative (Negative) Ur Leukocyte Esterase Negative (Negative) Urine Glucose Negative (Negative) Monoscreen (Negative) Result Diagrams: 04/23/18 16:09 04/23/18 16:09 Lab Statement: Any lab studies that have been ordered have been reviewed, and results considered in the medical decision making process. - EKG 1539 Cardiac Rate: NL - 75 BPM EKG Rhythm: Sinus Rhythm ST Segment: Normal Ectopy: None Re-Evaluation - Re-Evaluation First Eval Re-Evaluation Time: 18:23 Change: Improved Comment: Not nauseous anymore. Feeling better. Complex Multi-Symp Course/Dx Course Of Treatment: NAUSEA IMPROVED IN THE ED. DISCUSSED RESULTS WITH THE PATIENT. SHE HAS FOLLOW UP SCHEDULED WITH HER PMD THIS WEEK; RETURN TO ED IF WORSE. - Diagnoses Provider Diagnoses: Nausea & vomiting, Dehydration, Palpitations Discharge - Sign-Out/Discharge Documenting (check all that apply): Discharge/Admit/Transfer - Discharge Plan Condition: Stable Disposition: HOME Prescriptions: Ondansetron ODT TAB* [Zofran 4 MG Odt TAB*] 4 mg PO Q6H PRN #10 tab.odt PRN Reason: Nausea Patient Education Materials: Dehydration (ED), Acute Nausea and Vomiting (ED), Heart Palpitations (ED) Referrals: Tami Barton [Nurse Practitioner] - Additional Instructions: FOLLOW UP WITH YOUR DOCTOR. GET RECHECKED FOR ANY WORSENING OF YOUR CONDITION OR QUESTIONS OR CONCERNS. - Billing Disposition and Condition Condition: STABLE Disposition: Home The documentation as recorded by the Josue munguia Tariq accurately reflects the service I personally performed and the decisions made by me, Cabrera Forbes MD.
[2018-04-23 19:26] VITALS: BP 102/63
== END 2018-04-23 19:31 | disposition home or self-care (01) ==
LOC: ED 15:18
DX: E86.0 Dehydration (principal); R11.2 Nausea with vomiting, unspecified; R00.2 Palpitations; Z82.49 Family history of ischemic heart disease and other diseases of the circulatory system
CPT/HCPCS: 36415; 80053; 81003; 83690; 83735; 84443; 84484; 84702; 85025; 85610; 85730; 86140; 86308; 93005; 96360; 99283; A9270-GY

== ENCOUNTER 2018-07-20 18:17 | Emergency (ER) | payer OTHER ==
[2018-07-20 19:01] VITALS: BP 118/77
--- NOTE | 2018-07-20 20:08 | UC ---
Back Pain HPI - HPI Summary HPI Summary: 17 year old female here with a complaint of low back pain. 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 Pain is worse with range of motion. No weakness or numbness. Patient has not tried any ibuprofen or any pain medications. No difficulty controlling urine or bowel. - History of Current Complaint Chief Complaint: UCBackPain Stated Complaint: BACK PAIN W/C Time Seen by Provider: 07/20/18 19:03 Hx Last Menstrual Period: 07/14/18 Pain Intensity: 10 - Allergies/Home Medications Allergies/Adverse Reactions: Allergies Allergy/AdvReac Type Severity Reaction Status Date / Time No Known Allergies Allergy Verified 07/20/18 18:53 PMH/Surg Hx/FS Hx/Imm Hx - Additional Past Medical History Additional PMH: FIBROMYALGIA - Surgical History Surgical History: None Surgery Procedure, Year, and Place: DENIES - Family History Known Family History: Positive: Cardiac Disease - father with CHF as older adult Negative: Hypertension, Diabetes - Social History Alcohol Use: None Substance Use Type: None Smoking Status (MU): Never Smoked Tobacco Have You Smoked in the Last Year: No Household Exposure Type: Cigarettes Review of Systems Constitutional: Negative Skin: Negative Eyes: Negative ENT: Negative Respiratory: Negative Cardiovascular: Negative Gastrointestinal: Negative Motor: Negative Neurovascular: Negative Musculoskeletal: Other: - See history present illness Neurological: Negative Is Patient Immunocompromised?: No All Other Systems Reviewed And Are Negative: Yes Physical Exam Triage Information Reviewed: Yes Appearance: Well-Appearing, Well-Nourished, Pain Distress - Mild pain distress with movement of the back Vital Signs: Initial Vital Signs Temp 98.8 F 07/20/18 18:54 Pulse 75 07/20/18 18:54 Resp 18 07/20/18 18:54 BP 118/77 07/20/18 18:54 Pulse Ox 100 07/20/18 18:54 Vital Signs Reviewed: Yes Eye Exam: Normal Eyes: Positive: Conjunctiva Clear Neck exam: Normal Neck: Positive: Supple Respiratory: Positive: No respiratory distress Musculoskeletal: Positive: Other: - Patient is tender in the lumbar spine primarily to the right side of the lumbar spine and also the midline from L1 down to L5. No tenderness into the buttocks over the sciatic distribution. Lower extremity strength 5 out of 5 in the low back pain is worse with right hip flexion. Patellar reflexes normal bilaterally. No sensation deficits. Neurological Exam: Normal Neurological: Positive: Alert Psychological Exam: Normal Psychological: Positive: Age Appropriate Behavior Skin Exam: Normal Back Pain Course/Dx - Course Course Of Treatment: I discussed the x-rays with the patient. I do not see any fractures or any acute disease process. The radiologist reading is pending. The plan is ibuprofen with Flexeril when necessary. Follow-up with primary care doctor reevaluation sooner if condition worsens. - Differential Dx/Diagnosis Provider Diagnoses: Low back pain Discharge - Sign-Out/Discharge Documenting (check all that apply): Patient Departure All imaging exams completed and their final reports reviewed: No - Discharge Plan Condition: Stable Disposition: HOME Prescriptions: Cyclobenzaprine TAB* [Flexeril 10 MG TAB*] 10 mg PO TID PRN #15 tab MDD 3 PRN Reason: Pain Ibuprofen TAB* [Motrin TAB* 600 MG] 600 mg PO Q6H PRN #30 tab PRN Reason: Pain Patient Education Materials: Low Back Strain (ED), Lower Back Exercises (ED) Referrals: [facility] [place] PH[facility]ICIAN REFERRAL [Outside] Additional Instructions: FOLLOW UP WITH YOUR DOCTOR IF NOT COMPLETELY IMPROVED. GET RECHECKED FOR ANY WORSENING OF YOUR CONDITION; PAIN, WEAKNESS, NUMBNESS, DIFFICULTY CONTROLLING BOWEL OR BLADDER OR QUESTIONS OR CONCERNS. - Billing Disposition and Condition Condition: STABLE Disposition: Home
--- NOTE | 2018-07-21 07:03 | RAD ---
INDICATION: Low back pain. COMPARISON: There are no relevant prior studies available for comparison. TECHNIQUE: 5 views of the lumbar spine were obtained including lateral, oblique, AP and a coned-down lateral view of the lumbar sacral junction. FINDINGS: The vertebra are in normal alignment. No fracture is seen. Disc spaces appear maintained. IMPRESSION: NEGATIVE EXAM. R0
--- NOTE | 2018-07-21 20:51 | UC ---
- Progress Note Progress Note: Patient Name: KORI VAZQUEZ Medical Record#: [id number] Ordering Physician: Cabrera Forbes MD Acct.#: [id number] : 2000 Age: 17 Sex: F Location: [facility] Exam Date: 07/20/181910 ADM Status: [facility] ER Order Information: SP LUMBARSACRAL 4+ VWS Accession Number: [id number] CPT: 39696 INDICATION: Low back pain. COMPARISON: There are no relevant prior studies available for comparison. TECHNIQUE: 5 views of the lumbar spine were obtained including lateral, oblique , AP and a coned-down lateral view of the lumbar sacral junction. FINDINGS: The vertebra are in normal alignment. No fracture is seen. Disc spaces appear maintained. IMPRESSION: NEGATIVE EXAM. R0 <Electronically signed by José Luis Joseph MD in OV> 07/21/18 07 Dictated By: José Luis Joseph MD Dictated Date/Time: 07/21/18 07 Transcribed Date/Time: 07/21/18 0658 Copy to: CC:No Primary Care Phys,NOPCP ; Cabrera Forbes MD Imaging - [facility] [address] [place] [address] ph ([phone]) ph ([phone]) ph ([phone]) This report is only to be considered final once signed by the Provider(s) as displayed in the "<Electronically Signed by >" field (s). Absence of a signature indicates the report is in a draft status and still needs to be finalized. In the event this document was created by someone other than the signing Provider, the individual initiating the document will be listed in the "Entered by:" or "Dictated by:" hodge. 1 of 1 Discharge - Sign-Out/Discharge Documenting (check all that apply): Post-Discharge Follow Up All imaging exams completed and their final reports reviewed: Yes - Discharge Plan Condition: Stable Disposition: HOME Prescriptions: Cyclobenzaprine TAB* [Flexeril 10 MG TAB*] 10 mg PO TID PRN #15 tab MDD 3 PRN Reason: Pain Ibuprofen TAB* [Motrin TAB* 600 MG] 600 mg PO Q6H PRN #30 tab PRN Reason: Pain Patient Education Materials: Low Back Strain (ED), Lower Back Exercises (ED) Referrals: [facility] [Outside] Additional Instructions: FOLLOW UP WITH YOUR DOCTOR IF NOT COMPLETELY IMPROVED. GET RECHECKED FOR ANY WORSENING OF YOUR CONDITION; PAIN, WEAKNESS, NUMBNESS, DIFFICULTY CONTROLLING BOWEL OR BLADDER OR QUESTIONS OR CONCERNS. - Billing Disposition and Condition Condition: STABLE Disposition: Home
== END 2018-07-20 20:17 | disposition home or self-care (01) ==
LOC: UCCORT 18:17
DX: M54.5 Low back pain (principal)
CPT/HCPCS: 72110; 99212; G0463